=== PATIENT | female | born 1940 | race Caucasian/White ===

== ENCOUNTER 2018-03-31 17:04 | Observation (INO) ==
--- NOTE | 2018-03-31 17:25 | Emergency Department Note ---
Disposition Clinical Impression: Anemia Qualifiers: Anemia type: unspecified type Qualified Code(s): D64.9 - Anemia, unspecified Disposition: Admitted As Inpatient Condition: Fair General Adult HPI - General Chief complaint: ED Recheck/Abnormal Lab/Rx Stated complaint: abnormal labs Source: patient, EMS Mode of arrival: EMS Limitations: no limitations Nursing Notes Reviewed: Yes Vital Signs Reviewed: Yes - History of Present Illness HPI Narrative: Patient presents to the ED on referral by her dialysis center for further evaluation of a dropping hemoglobin. Per report and paperwork sent with the patient her hemoglobin was 9.7 on the , 7.8 on the and 6.9 2 days ago. Patient has a history of chronic anemia but has had a stable H&H in the past. Patient reports that she does feel short of breath that is worse with exertion over the past month and also has some fatigue. She reports a nosebleed 1 week ago but no other spontaneous bleeding or easy bruising. She is on Coumadin for her history of A. fib. She had a normal dialysis session today. She states she did have a blood transfusion 4-5 years ago after becoming anemic from rectal bleeding that was discovered to be from colon polyps. She has not had any bleeding problems since that time. She is on Coumadin and Plavix for her A. fib and cardiac history. Pain Scale: 0 - Related Data Home Medications Medication Instructions Recorded Confirmed Pentoxifylline [TRENtal] 400 mg PO BID 10/20/17 03/31/18 Midodrine HCl 10 mg PO MOWEFR 02/24/18 03/31/18 Simvastatin [Zocor] 10 mg PO HS 02/24/18 03/31/18 Warfarin [Coumadin] 4 mg PO MOWEFRSA 02/24/18 03/31/18 Calcium Acetate 667 mg PO TID 02/28/18 03/31/18 Umeclidinium [place] [Incruse 1 puff IH DAILY 02/28/18 03/31/18 Ellipta] Warfarin [Coumadin] 2 mg PO SUTUTH 02/28/18 03/31/18 Ibuprofen [Ibu] 600 mg PO BID 03/31/18 03/31/18 Previous Rx's Medication Instructions Recorded Albuterol Sulfate [Ventolin Hfa] 2 puff IH Q4H PRN #1 hfa.aer.ad 09/13/17 Budesonide/Formoterol 160/4.5 2 puff IH BIDR #1 inhaler 09/13/17 [Symbicort 160/4.5] Citalopram [CeleXA] 20 mg PO DAILY #30 tablet 09/13/17 Esomeprazole Magnesium [Nexium] 40 mg PO DAILY #30 capsule. 09/13/17 Folic Acid 1 mg PO DAILY #30 tablet 09/13/17 Nitroglycerin [Nitrostat] 0.4 mg SL Q5M PRN #1 bottle 09/13/17 Renal Vitamin [Renal Caps Softgel] 1 mg PO DAILY #30 capsule 09/13/17 Zolpidem [Ambien] 5 mg PO HS 30 Days #30 tablet 09/13/17 Clopidogrel Bisulfate [Plavix] 75 mg PO DAILY #30 tablet 10/20/17 Acetaminophen [Tylenol] 650 mg PO Q6HR PRN #60 tablet 03/02/18 Metoprolol [Lopressor] 12.5 mg PO BID #60 tablet 03/02/18 Allergies Allergy/AdvReac Type Severity Reaction Status Date / Time diltiazem [From Cardizem] Allergy Rash Verified 03/31/18 17:20 naproxen Allergy Hives Verified 03/31/18 17:20 codeine AdvReac Nausea Verified 03/31/18 17:20 Constitutional: Denies: fever, chills, weakness, weight change Eyes: Denies: eye pain, eye discharge, vision change ENT ED: Denies: ear pain, throat pain, dental pain, hearing loss, epistaxis, c ongestion, dysphagia Cardiovascular: Reports: dyspnea on exertion. Denies: chest pain, palpitations, edema, syncope Respiratory: Denies: cough, dyspnea, wheezes, hemoptysis, stridor Gastrointestinal: Denies: abdominal pain, nausea, vomiting, diarrhea, constipation, hematemesis, melena, hematochezia Genitourinary: Denies: dysuria, frequency, hematuria, discharge Musculoskeletal: Denies: back pain, neck pain, arthralgia, myalgia Integumentary: Denies: rash, abrasion, lesions Neurological: Denies: headache, weakness, numbness, paresthesias, confusion, abnormal gait, vertigo Psychiatric: Denies: anxiety, depression, suicidal thoughts, homicidal thoughts, auditory hallucinations, visual hallucinations Endocrine: Reports: fatigue Hematological/Lymphatic: Denies: easy bleeding, easy bruising Allergic/Immunologic: Denies: facial swelling, urticaria Past Medical History - Past Medical History Medical history: Reports: atrial fibrillation, CHF, COPD, CVA, dialysis, GERD, hyperlipidemia, hypertension, peripheral artery disease, renal disease Surgical history: Reports: cholecystectomy, thyroidectomy, vascular surgery, LE vascular intervention Psychiatric history: Reports: depression POWERTRAIN ENGINEER history: Reports: no POWERTRAIN ENGINEER history - Social History Smoking Status: Former smoker Smokeless Tobacco Status: No Alcohol use: Reports: none Drug use: Reports: none Physical Exam - General Limitations: no limitations General appearance: alert, in no apparent distress - Head Head exam: atraumatic, normocephalic, normal inspection - Eye Eye exam: Present: normal appearance, PERRL, EOMI - ENT ENT exam: normal exam, normal oropharynx, mucous membranes moist - Neck Neck exam: Present: normal inspection, full ROM, trachea midline - Chest Chest inspection: Present: normal inspection, symmetric chest wall rise - Respiratory Respiratory exam: Present: normal lung sounds bilaterally - Cardiovascular Cardiovascular exam: Present: regular rate, normal rhythm, normal heart sounds - Abdominal Exam Abdominal exam: Present: soft, Non-Tender. Absent: tenderness, distention, guarding, rebound, rigidity - Rectal Exam Link Trainer present during exam: Yes Rectal exam: Present: normal inspection, normal rectal tone, hemorrhoids - Extremities Exam Extremities exam: Present: normal inspection, full ROM, other (L BKA). Absent: tenderness, pedal edema - Neurological Exam Neurological exam: Present: alert, oriented X3 - Psychiatric Psychiatric exam: Present: normal affect, normal mood - Skin Skin exam: Present: warm, dry, intact, normal color Course Course Narrative: Patient presents to the ED on referral from her dialysis center for study dropping H&H. On arrival she is afebrile and nontoxic in appearance that is intermittently tachycardic with A. fib which is chronic for her. Will repeat lab work and obtain stool guaiac to confirm H&H before ordering blood products. - Reevaluation(s) Reevaluation #1: H&H are 6.6 and 21.8. Stool is guaiac positive. Patient will need a blood transfusion. Discussed with patient the need for blood transfusion and she is in agreement. Given the possible GI source and patient's requirement of dialysis, consideration was made for transfer to [facility] for transfusion and further workup but no beds were available. I spoke to Dr. Yusuf here who is comfortable accepting the patient. We will order anemia w orkup per his request and start transfusion of 2 units of blood. Vital Signs Temperature 98.2 F 03/31/18 17:11 Pulse Rate 105 03/31/18 17:11 Respiratory Rate 18 03/31/18 17:11 Blood Pressure 132/79 03/31/18 17:11 O2 Sat by Pulse Oximetry 98 03/31/18 17:11 Temperature 98.2 F 04/01/18 06:13 Pulse Rate 94 04/01/18 06:13 Respiratory Rate 16 04/01/18 06:13 Blood Pressure 121/76 04/01/18 06:13 O2 Sat by Pulse Oximetry 99 04/01/18 06:13 Oxygen Delivery Oxygen Delivery Nasal Cannula Medical Decision Making - Medical Records Medical records reviewed: Yes I reviewed the patient's medical records. - Lab Data Lab results reviewed: Yes I reviewed the patient's lab results. Result diagrams: 03/31/18 17:46 03/31/18 17:46 Lab Results 03/31/18 03/31/18 03/31/18 Range/Units 17:46 17:46 17:46 WBC 5.9 (4.3-11.1) K/mcL RBC 1.99 L (3.82-4.97) M/mcL Hgb 6.6 L (11.5-15.4) g/dL Hct 21.8 L (35.3-44.9) % MCV 109.5 H (83.0-100.0) fL MCH 33.2 (28.0-33.3) pg MCHC 30.3 L (31.6-35.5) g/dL RDW 14.3 (11.5-14.5) % Plt Count 250 (140-400) K/mcL MPV 9.3 L (9.4-12.4) fL Immature Gran % 0.5 (0-4) % Seg Neutrophils % 75.2 % Lymphocytes % 13.6 % Monocytes % 7.3 % Eosinophils % 3.1 % Basophils % 0.3 % Neutrophils # 4.4 (1.6-8.9) K/mcL Lymphocytes # 0.8 (0.6-4.6) K/mcL Monocytes # 0.4 (0.0-1.3) K/mcL Eosinophils # 0.2 (0.0-0.6) K/mcL Basophils # 0.0 (0.0-0.2) K/mcL PT (9.4-12.1) Seconds INR Sodium 137 (136-145) mEq/L Potassium 4.0 (3.5-5.1) mEq/L Chloride 98 (98-107) mEq/L Carbon Dioxide 27 (23-29) mEq/L BUN 19 (8-23) mg/dL Creatinine 2.69 H (0.60-1.20) mg/dL Est GFR ( Amer) 21 L (> 60) Est GFR (Non-Af Amer) 17 L (> 60) BUN/Creatinine Ratio 7 (6-26) Glucose 103 (70-105) mg/dL Calculated Osmolality 287 (280-300) Calcium 8.9 (8.6-10.3) mg/dL Stool Occult Blood (Negative) Blood Type A POSITIVE Antibody Screen NEGATIVE Crossmatch See Detail 03/31/18 03/31/18 Range/Units 17:46 19:13 WBC (4.3-11.1) K/mcL RBC (3.82-4.97) M/mcL Hgb (11.5-15.4) g/dL Hct (35.3-44.9) % MCV (83.0-100.0) fL MCH (28.0-33.3) pg MCHC (31.6-35.5) g/dL RDW (11.5-14.5) % Plt Count (140-400) K/mcL MPV (9.4-12.4) fL Immature Gran % (0-4) % Seg Neutrophils % % Lymphocytes % % Monocytes % % Eosinophils % % Basophils % % Neutrophils # (1.6-8.9) K/mcL Lymphocytes # (0.6-4.6) K/mcL Monocytes # (0.0-1.3) K/mcL Eosinophils # (0.0-0.6) K/mcL Basophils # (0.0-0.2) K/mcL PT 42.8 H (9.4-12.1) Seconds INR 3.8 Sodium (136-145) mEq/L Potassium (3.5-5.1) mEq/L Chloride (98-107) mEq/L Carbon Dioxide (23-29) mEq/L BUN (8-23) mg/dL Creatinine (0.60-1.20) mg/dL Est GFR ( Amer) (> 60) Est GFR (Non-Af Amer) (> 60) BUN/Creatinine Ratio (6-26) Glucose (70-105) mg/dL Calculated Osmolality (280-300) Calcium (8.6-10.3) mg/dL Stool Occult Blood Positive A (Negative) Blood Type Antibody Screen Crossmatch
[2018-03-31 17:57] LABS: Basophils % 0.3 %; Eosinophils # 0.2 K/mcL (0.0-0.6); Eosinophils % 3.1 %; Hematocrit 21.8 % (35.3-44.9); Hemoglobin 6.6 g/dL (11.5-15.4); Immature Granulocytes % 0.5 % (0-4); Lymphocytes # 0.8 K/mcL (0.6-4.6); Lymphocytes % 13.6 %; Mean Corpuscular HGB Conc 30.3 g/dL (31.6-35.5); Mean Corpuscular Hemoglobin 33.2 pg (28.0-33.3); Mean Corpuscular Volume 109.5 fL (83.0-100.0); Mean Platelet Volume 9.3 fL (9.4-12.4); Monocytes # 0.4 K/mcL (0.0-1.3); Monocytes % 7.3 %; Neutrophils # 4.4 K/mcL (1.6-8.9); Platelet Count 250 K/mcL (140-400); Red Blood Count 1.99 M/mcL (3.82-4.97); Red Cell Distribution Width 14.3 % (11.5-14.5); Segmented Neutrophils % 75.2 %
[2018-03-31 18:04] LABS: INR 3.8; Prothrombin Time 42.8 Seconds (9.4-12.1)
[2018-03-31 18:11] LABS: Calcium 8.9 mg/dL (8.6-10.3)
[2018-03-31] MEDS ORDERED: Ipratropium/Albuterol Neb 3 ML IH ONE (19:03)
[2018-03-31] MEDS ORDERED: Naloxone 0.4 MG/ML INJ IVP PRN ×2 (19:59→20:46)
[2018-03-31] MEDS ORDERED: Acetaminophen 325 MG TABLET PO PRN (20:46)
[2018-03-31] MEDS ORDERED: Nitroglycerin 0.4 MG TAB.SUBL SL PRN (20:46)
[2018-03-31] MEDS ORDERED: 0.9 % Sodium Chloride 250 ML ONE (21:15)
[2018-03-31] MEDS: Ibuprofen 600 MG TABLET PO SCH (21:51)
[2018-03-31] MEDS: Calcium Acetate 667 MG CAPSULE PO SCH (21:52)
[2018-03-31] MEDS: Budesonide/Formoterol 160/4.5 1 PUFF INH IH SCH (23:01)
[2018-04-01 07:44] LABS: Basophils % 0.7 %; Eosinophils # 0.3 K/mcL (0.0-0.6); Eosinophils % 4.2 %; Hematocrit 30.4 % (35.3-44.9); Hemoglobin 9.8 g/dL (11.5-15.4); Immature Granulocytes % 0.5 % (0-4); Lymphocytes # 0.9 K/mcL (0.6-4.6); Lymphocytes % 15.2 %; Mean Corpuscular HGB Conc 32.2 g/dL (31.6-35.5); Mean Corpuscular Hemoglobin 32.5 pg (28.0-33.3); Mean Corpuscular Volume 100.7 fL (83.0-100.0); Mean Platelet Volume 9.3 fL (9.4-12.4); Monocytes # 0.4 K/mcL (0.0-1.3); Monocytes % 7.1 %; Neutrophils # 4.3 K/mcL (1.6-8.9); Platelet Count 174 K/mcL (140-400); Red Blood Count 3.02 M/mcL (3.82-4.97); Red Cell Distribution Width 16.8 % (11.5-14.5); Segmented Neutrophils % 72.3 %
[2018-04-01] MEDS: Ibuprofen 600 MG TABLET PO SCH (08:50)
[2018-04-01] MEDS: Calcium Acetate 667 MG CAPSULE PO SCH ×2 (08:51→15:46)
[2018-04-01] MEDS ORDERED: (Umeclidinium Bromide [Incruse Ellipta] 1 PUFF) IH SCH (09:00)
[2018-04-01] MEDS ORDERED: Renal Vitamin 1 CAP CAPSULE PO SCH (09:00)
[2018-04-01] MEDS ORDERED: Folic Acid 1 MG TABLET PO SCH (09:00)
[2018-04-01 09:35] LABS: % Iron Saturation 16 % (15-50); Iron 36 mcg/dL (50-170); Transferrin 160 mg/dL (203-362)
[2018-04-01] MEDS: Budesonide/Formoterol 160/4.5 1 PUFF INH IH SCH (09:57)
[2018-04-01 10:01] LABS: Vitamin B12 913 pg/mL (250-1100)
[2018-04-01 10:20] LABS: Folate > 22.3 ng/mL (3.0-16.0)
[2018-04-01 10:32] VITALS: BP 110/68
--- NOTE | 2018-04-01 16:30 | Internal Med History&Physical ---
Date of Encounter: 04/01/18 Time of Encounter: 15:50 Assessment and Plan (1) Anemia Current visit: Yes Status: Acute Multifactorial etiology including chronic kidney disease, use of OAC, Plavix, and NSAID. Hemoglobin has risen to 9.8 posttransfusion. I told her to discontinue use of NSAIDs. Qualifiers: Anemia type: unspecified type Qualified Code(s): D64.9 - Anemia, unspecified (2) ESRD (end stage renal disease) on dialysis Current visit: No Status: Chronic Continue MWF hemodialysis (3) Atrial fibrillation Current visit: No Status: Chronic Continue Coumadin with dose adjustment to keep INR 2.0-3.0. Qualifiers: Atrial fibrillation type: chronic Qualified Code(s): I48.2 - Chronic atrial fibrillation Internal Medicine - H&P: HPI Chief complaint: Anemia Admitted From: Emergency Dept Plans for Post Hospital Care: Home History of present illness: Ms. Santiago is a 77 year old female who was directed to emergency room from dialysis after she was found to have anemia following dialysis treatment. Labs in emergency room confirmed anemia with hemoglobin 6.6. She was admitted to [facility] floor for blood transfusion and ongoing care needs. She states she feels significantly improved posttransfusion and wishes to be discharged home. She reports she felt weak and slightly dyspneic prior to transfusion. She denies visible melena or hematochezia but states her vision is significantly impaired from macular degeneration. She has had no abdominal pain or change in her bowel habits. She admits she has used OTC ibuprofen at doses up to 60 mg twice a day recently. She is on Coumadin for atrial fibrillation and Plavix for known vascular disease. Cardiovascular history is pertinent for hypertension and chronic atrial fibrillation. She denies DVT or pulmonary embolus. 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 The renal arteries had significant flow-limiting disease bilaterally. Distal right common femoral and right superficial femoral were occluded. The right posterior tibial and anterior tibial were occluded. Balloon angioplasty was performed successfully on the right common femoral, proximal aspect of femoral popliteal bypass graft, and distal aspect of the femoral popliteal bypass graft. Echocardiogram 03/01/2018 showed LVEF of 60%. The interventricular septum and posterior wall thickness measurements were 1.20 and 1.00 cm respectively. There was LAE at 4.50 cm. There was indeterminate diastolic function due to atrial fibrillation. There was mild tricuspid regurgitation. There was reported mild pulmonary hypertension although estimated RVSP was not documented. Past Med Surg Social Fam HX - Past Medical History Medical history: atrial fibrillation, CHF, COPD, CVA, dialysis, GERD, hyperlipidemia, hypertension, peripheral artery disease, renal disease Additional medical history: cva x2, Psychiatric history: depression - Past Surgical History Surgical History: cholecystectomy, thyroidectomy, vascular surgery, LE vascular intervention Additional surgical history: left below the knee amputation - Social History Smoking Status: Former smoker Smokeless Tobacco Status: No Alcohol use: none Drug use: none - Family History Father Adopted: Yes Mother Adopted: Yes Brother Family Member Ethnicity: Non- Living Status: Still Living Sister Family Member Ethnicity: Non- Living Status: Still Living Hx Family Neuromuscular Disorders: Yes (Parkinson's disease) Internal Medicine - H&P: Meds Albuterol Sulfate [Ventolin Hfa] 2 puff IH Q4H PRN #1 hfa.aer.ad 09/13/17 [Rx] Budesonide/Formoterol 160/4.5 [Symbicort 160/4.5] 2 puff IH BIDR #1 inhaler 09/13/17 [Rx] Citalopram [CeleXA] 20 mg PO DAILY #30 tablet 09/13/17 [Rx] Esomeprazole Magnesium [Nexium] 40 mg PO DAILY #30 capsule. 09/13/17 [Rx] Folic Acid 1 mg PO DAILY #30 tablet 09/13/17 [Rx] Nitroglycerin [Nitrostat] 0.4 mg SL Q5M PRN #1 bottle 09/13/17 [Rx] Renal Vitamin [Renal Caps Softgel] 1 mg PO DAILY #30 capsule 09/13/17 [Rx] Zolpidem [Ambien] 5 mg PO HS 30 Days #30 tablet 09/13/17 [Rx] Clopidogrel Bisulfate [Plavix] 75 mg PO DAILY #30 tablet 10/20/17 [Rx] Pentoxifylline [TRENtal] 400 mg PO BID 10/20/17 [History] Midodrine HCl 10 mg PO MOWEFR 02/24/18 [History] Simvastatin [Zocor] 10 mg PO HS 02/24/18 [History] Warfarin [Coumadin] 4 mg PO MOWEFRSA 02/24/18 [History] Calcium Acetate 667 mg PO TID 02/28/18 [History] Umeclidinium [place] [Incruse Ellipta] 1 puff IH DAILY 02/28/18 [History] Warfarin [Coumadin] 2 mg PO SUTUTH 02/28/18 [History] Acetaminophen [Tylenol] 650 mg PO Q6HR PRN #60 tablet 03/02/18 [Rx] Metoprolol [Lopressor] 12.5 mg PO BID #60 tablet 03/02/18 [Rx] Ibuprofen [Ibu] 600 mg PO BID 03/31/18 [History] Allergy/AdvReac Type Severity Reaction Status Date / Time diltiazem [From Cardizem] Allergy Rash Verified 03/31/18 17:20 naproxen Allergy Hives Verified 03/31/18 17:20 codeine AdvReac Nausea Verified 03/31/18 17:20 All Systems PM: A 10-system review of systems was performed and is negative for pertinent findings except as documented above in the HPI. Review of systems: Gen.: Her weight has decreased from 88.7 kg on 08/22/2016 to 73.255 kg now Cardiovascular: As per history of present illness Respiratory: She smoked from age [age] never exceeding 1 pack per day. She has a diagnosis of COPD with PFTs done approximately 2011. She wears oxygen 18/10. She has a diagnosis of ATUL and has CPAP at home but admits she does not use it consistently. Chest CT scan November 2017 showed a slowly enlarging right lower lobe solid nodule. GI: She has had cholecystectomy. She has GERD but denies disorders of liver or exocrine pancreas : She had kidney stones remotely. She has chronic kidney disease stage V and has been on hemodialysis since 2008. She has had left renal cyst with serial imaging. She denies other kidney or bladder disorders. Endocrine: She has hyperlipidemia but denies diabetes. She had partial thyroidectomy remotely for goiter. 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 She reports to mini strokes but denies large disposition strokes or seizures. Hematology/oncology: She has chronic anemia presumably primarily from chronic kidney disease. She denies internal malignancies. Psychiatric: She has depression but denies anxiety other mental health issues. Muscle skeletal: She has arthritis and osteoporosis but denies gout. 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 - Constitutional Vitals: Temp Pulse Resp BP Pulse Ox 98.2 F 70 18 110/68 98 04/01/18 10:32 04/01/18 10:32 04/01/18 10:32 04/01/18 10:32 04/01/18 10:32 Exam: Gen.: She is well-developed well-nourished female resting comfortably in bed who appears in no acute distress at present time HEENT: Head is atraumatic and normocephalic. Eyes: EOMI. There is no scleral icterus. Mouth: Mucosa is moist. Neck: Supple and nontender. There is no thyromegaly or adenopathy noted. Heart: Irregularly irregular without murmurs or gallops Lungs: No wheezes or crackles are heard. Abdomen: Soft and nontender. No masses or guarding are noted. Extremities: She has a well-healed left BKA. The right foot is warm to touch and shows chronic ischemic changes of her toes. Dorsalis pedis and posttibial p ulses are trace palpable bilaterally. She has minimal DJD changes of her hands. Neurologic: Mental status: She is talkative and a good historian. Cranial nerves: Smile is symmetric. Forehead wrinkles bilaterally. Tongue protrudes midline. EOMI. Motor: There is no pronator drift. Cerebellar: Finger to nose is intact bilaterally. Skin: Warm and dry. Internal Med - H&P Results - Labs CBC & Chem 7: 04/01/18 07:32 03/31/18 17:46 Labs: Short CBC 03/31/18 04/01/18 Range/Units 17:46 07:32 WBC 5.9 5.9 (4.3-11.1) K/mcL Hgb 6.6 L 9.8 L D (11.5-15.4) g/dL Hct 21.8 L 30.4 L (35.3-44.9) % Plt Count 250 174 (140-400) K/mcL Neutrophils # 4.4 4.3 (1.6-8.9) K/mcL BMP 03/31/18 17:46 Sodium 137 Potassium 4.0 Chloride 98 Carbon Dioxide 27 BUN 19 Creatinine 2.69 H Glucose 103 Calcium 8.9 - Impressions ITS Impressions Chest X-Ray 03/31/18 19:03 IMPRESSION: Asymmetric increased density of the right hemithorax when compared to the left may be secondary to rotation. Clinical correlation and follow-up study would be helpful. D/ / Radu Angulo MD / Radu Angulo MD Interpreting Provider: Radu Angulo MD - VTE Reasons for not Prescribing Prophylaxis: Not indicated-Anticoagulated or INR therapeutic
--- NOTE | 2018-04-01 16:48 | Discharge Summary ---
Date of Encounter: 04/01/18 Time of Encounter: 15:50 - Discharge Diagnosis (1) Anemia Priority: Primary Status: Acute Qualifiers: Anemia type: unspecified type Qualified Code(s): D64.9 - Anemia, uns pecified (2) ESRD (end stage renal disease) on dialysis Priority: Secondary Status: Chronic (3) Atrial fibrillation Priority: Secondary Status: Chronic Qualifiers: Atrial fibrillation type: chronic Qualified Code(s): I48.2 - Chronic atrial fibrillation Hospital course: Ms. Santiago is a 77 year old female who was directed to emergency room from dialysis after she was found to have anemia following dialysis treatment. Labs in emergency room confirmed anemia with hemoglobin 6.6. She was admitted to [facility] floor for blood transfusion and ongoing care needs. Initial orders were written by the emergency room physician. I saw her on April 01 and performed the history and physical. Hemoglobin emiliano to 9.8 posttransfusion. She felt back to baseline and wished to be discharged home. I told her to discontinue use of OTC ibuprofen. I felt it was likely her home dose of up to 600 mg twice a day contributed significantly to her anemia. She will continue Coumadin with monitoring/adjustment done at Coumadin clinic. She will also continue Plavix. Anemia testing showed iron 36, transferrin saturation 16, transferrin 160, ferritin > 1500, B12 913, and folate > 22.3. Supplemental folic acid will be discontinued. Her PCP can verify she is getting EPO at time of dialysis. She will follow with her PCP Dr. Ifeanyi Aviles within 1 week. - Time Spent with Patient Total time spent providing and/or coordinating discharge services: - Discharge Medications Home Medications: Albuterol Sulfate [Ventolin Hfa] 2 puff IH Q4H PRN #1 hfa.aer.ad 09/13/17 [Rx] Budesonide/Formoterol 160/4.5 [Symbicort 160/4.5] 2 puff IH BIDR #1 inhaler 09/13/17 [Rx] Citalopram [CeleXA] 20 mg PO DAILY #30 tablet 09/13/17 [Rx] Esomeprazole Magnesium [Nexium] 40 mg PO DAILY #30 capsule. 09/13/17 [Rx] Nitroglycerin [Nitrostat] 0.4 mg SL Q5M PRN #1 bottle 09/13/17 [Rx] Renal Vitamin [Renal Caps Softgel] 1 mg PO DAILY #30 capsule 09/13/17 [Rx] Zolpidem [Ambien] 5 mg PO HS 30 Days #30 tablet 09/13/17 [Rx] Clopidogrel Bisulfate [Plavix] 75 mg PO DAILY #30 tablet 10/20/17 [Rx] Pentoxifylline [TRENtal] 400 mg PO BID 10/20/17 [History] Midodrine HCl 10 mg PO MOWEFR 02/24/18 [History] Simvastatin [Zocor] 10 mg PO HS 02/24/18 [History] Warfarin [Coumadin] 4 mg PO MOWEFRSA 02/24/18 [History] Calcium Acetate 667 mg PO TID 02/28/18 [History] Umeclidinium [place] [Incruse Ellipta] 1 puff IH DAILY 02/28/18 [History] Warfarin [Coumadin] 2 mg PO SUTUTH 02/28/18 [History] Acetaminophen [Tylenol] 650 mg PO Q6HR PRN #60 tablet 03/02/18 [Rx] Metoprolol [Lopressor] 12.5 mg PO BID #60 tablet 03/02/18 [Rx] Allergies/Adverse Reactions: Allergy/AdvReac Type Severity Reaction Status Date / Time diltiazem [From Cardizem] Allergy Rash Verified 03/31/18 17:20 naproxen Allergy Hives Verified 03/31/18 17:20 codeine AdvReac Nausea Verified 03/31/18 17:20 Date of admission: 03/31/18 20:16 Primary care physician: Ifeanyi Aviles MD - Constitutional Vitals: Temp Pulse Resp BP Pulse Ox 98.2 F 70 18 110/68 98 04/01/18 10:32 04/01/18 10:32 04/01/18 10:32 04/01/18 10:32 04/01/18 10:32 - Patient Status Disposition: Home, Self-Care Condition: Fair - Discharge Instructions Follow Up With: Ifeanyi Aviles MD [Primary Care Provider] - 1 week - Diet and Activity Activity: resume usual activities as tolerated Diet: advance to your usual diet - VTE Reasons for not Prescribing Prophylaxis: Not indicated-Anticoagulated or INR therapeutic
== END 2018-04-01 17:40 | disposition home or self-care (01) ==
LOC: INPPIK 17:04 → EMEROOPIK 17:04 → INPPIK 20:32
PROVIDERS: ADMIT Internal Medicine; ATTEND Internal Medicine

== ENCOUNTER 2019-09-21 18:09 | Inpatient (IN) ==
[2019-09-21] MEDS ORDERED: Albuterol Neb 1.25 MG/3 ML VIAL IH PRN (20:37)
[2019-09-21] MEDS ORDERED: Levalbuterol 1 PUFF INHALER IH PRN (20:37)
[2019-09-21] MEDS ORDERED: Nitroglycerin 0.4 MG TAB.SUBL SL PRN (20:37)
[2019-09-21] MEDS ORDERED: Ondansetron ODT 4 MG TAB.RAPDIS SL PRN (20:49)
[2019-09-21] MEDS ORDERED: Melatonin 3 MG TABLET PO PRN (20:50)
[2019-09-21] MEDS: Apixaban 5 MG TABLET PO SCH (21:33)
[2019-09-21] MEDS: Budesonide/Formoterol 160/4.5 1 PUFF INH IH SCH (23:43)
[2019-09-22] MEDS: Levothyroxine 25 MCG TABLET PO SCH (05:34)
[2019-09-22 06:14] LABS: Basophils # 0.1 K/mcL (0.0-0.2); Basophils % 1.3 %; Eosinophils # 0.5 K/mcL (0.0-0.6); Eosinophils % 8.6 %; Hemoglobin 10.1 g/dL (11.5-15.4); Immature Granulocytes % 0.3 % (0-4); Lymphocytes # 1.4 K/mcL (0.6-4.6); Mean Corpuscular HGB Conc 28.9 g/dL (31.6-35.5); Mean Corpuscular Volume 110.8 fL (83.0-100.0); Mean Platelet Volume 9.9 fL (9.4-12.4); Monocytes # 0.4 K/mcL (0.0-1.3); Monocytes % 6.7 %; Neutrophils # 3.7 K/mcL (1.6-8.9); Platelet Count 132 K/mcL (140-400); Red Blood Count 3.16 M/mcL (3.82-4.97); Red Cell Distribution Width 14.9 % (11.5-14.5); Segmented Neutrophils % 60.1 %; White Blood Count 6.1 K/mcL (4.3-11.1)
[2019-09-22 07:20] LABS: Calcium 8.8 mg/dL (8.6-10.3); Potassium 3.5 mEq/L (3.5-5.1)
[2019-09-22] MEDS ORDERED: Tiotropium 18 MCG inhalation IH ONE (07:29)
[2019-09-22] MEDS: Budesonide/Formoterol 160/4.5 1 PUFF INH IH SCH ×2 (07:39→22:04)
[2019-09-22] MEDS: Tiotropium 18 MCG inhalation IH SCH (07:39)
[2019-09-22 07:59] LABS: Anisocytosis 1+ (Not Present); Hypochromasia Present (Not Present); Macrocytosis Present (Not Present)
[2019-09-22 08:00] LABS: Basophilic Stippling 1+ (Not Present); Platelet Estimate Normal (Normal); Polychromasia 1+ (Not Present)
[2019-09-22] MEDS ORDERED: Levalbuterol 1 PUFF INHALER IH PRN (08:47)
[2019-09-22] MEDS ORDERED: Albuterol 2.5 MG/3 ML NEBULIZER IH PRN (09:00)
[2019-09-22] MEDS ORDERED: Levalbuterol Neb 1.25 MG/3 ML IH PRN (09:21)
[2019-09-22] MEDS: Renal Vitamin 1 CAP CAPSULE PO SCH (09:56)
[2019-09-22] MEDS: Cholecalciferol (D-3) 1,000 UNIT (25MCG) TABLET PO SCH (09:58)
[2019-09-22] MEDS: Apixaban 5 MG TABLET PO SCH ×2 (09:58→21:35)
[2019-09-22] MEDS: Folic Acid 1 MG TABLET PO SCH (09:59)
[2019-09-22] MEDS: Gabapentin 100 MG CAPSULE PO SCH (10:00)
[2019-09-22] MEDS: QUEtiapine Fumarate 25 MG TABLET PO SCH (10:01)
[2019-09-22] MEDS: Sennosides/Docusate Sodium TABLET PO SCH (10:01)
[2019-09-22] MEDS: (Colestipol Hcl [Colestid] 1 GM) PO SCH (12:45)
[2019-09-23] MEDS: Levothyroxine 25 MCG TABLET PO SCH (05:05)
[2019-09-23] MEDS: Apixaban 5 MG TABLET PO SCH ×2 (08:21→19:55)
[2019-09-23] MEDS: Folic Acid 1 MG TABLET PO SCH (08:23)
[2019-09-23] MEDS: Gabapentin 100 MG CAPSULE PO SCH (08:24)
[2019-09-23] MEDS: Renal Vitamin 1 CAP CAPSULE PO SCH (08:25)
[2019-09-23] MEDS: QUEtiapine Fumarate 25 MG TABLET PO SCH (08:26)
[2019-09-23] MEDS: Sennosides/Docusate Sodium TABLET PO SCH (08:26)
[2019-09-23] MEDS: Cholecalciferol (D-3) 1,000 UNIT (25MCG) TABLET PO SCH (08:31)
[2019-09-23] MEDS: (Colestipol Hcl [Colestid] 1 GM) PO SCH (08:55)
[2019-09-23] MEDS: Budesonide/Formoterol 160/4.5 1 PUFF INH IH SCH ×2 (10:58→22:39)
[2019-09-23] MEDS: Tiotropium 18 MCG inhalation IH SCH (10:58)
[2019-09-23] MEDS: Acetaminophen 325 MG TABLET PO PRN (14:40)
[2019-09-24] MEDS: Levothyroxine 25 MCG TABLET PO SCH (05:43)
[2019-09-24] MEDS: QUEtiapine Fumarate 25 MG TABLET PO SCH (08:07)
[2019-09-24] MEDS: Renal Vitamin 1 CAP CAPSULE PO SCH (08:07)
[2019-09-24] MEDS: Sennosides/Docusate Sodium TABLET PO SCH (08:07)
[2019-09-24] MEDS: Cholecalciferol (D-3) 1,000 UNIT (25MCG) TABLET PO SCH (08:07)
[2019-09-24] MEDS: Folic Acid 1 MG TABLET PO SCH (08:07)
[2019-09-24] MEDS: Apixaban 5 MG TABLET PO SCH ×2 (08:07→20:26)
[2019-09-24] MEDS: Gabapentin 100 MG CAPSULE PO SCH (08:07)
[2019-09-24] MEDS: (Colestipol Hcl [Colestid] 1 GM) PO SCH (08:12)
[2019-09-24] MEDS: Budesonide/Formoterol 160/4.5 1 PUFF INH IH SCH ×2 (10:39→22:16)
[2019-09-24] MEDS: Tiotropium 18 MCG inhalation IH SCH (10:39)
[2019-09-25] MEDS: Levothyroxine 25 MCG TABLET PO SCH (05:54)
[2019-09-25] MEDS: Folic Acid 1 MG TABLET PO SCH (07:53)
[2019-09-25] MEDS: Cholecalciferol (D-3) 1,000 UNIT (25MCG) TABLET PO SCH (07:53)
[2019-09-25] MEDS: Gabapentin 100 MG CAPSULE PO SCH (07:53)
[2019-09-25] MEDS: Apixaban 5 MG TABLET PO SCH ×2 (07:53→20:18)
[2019-09-25] MEDS: Renal Vitamin 1 CAP CAPSULE PO SCH (07:53)
[2019-09-25] MEDS: QUEtiapine Fumarate 25 MG TABLET PO SCH (07:53)
[2019-09-25] MEDS: Sennosides/Docusate Sodium TABLET PO SCH (07:54)
[2019-09-25] MEDS: (Colestipol Hcl [Colestid] 1 GM) PO SCH (07:54)
[2019-09-25] MEDS: Budesonide/Formoterol 160/4.5 1 PUFF INH IH SCH ×2 (09:06→22:33)
[2019-09-25] MEDS: Tiotropium 18 MCG inhalation IH SCH (09:07)
[2019-09-26] MEDS: Levothyroxine 25 MCG TABLET PO SCH (06:04)
[2019-09-26] MEDS: Budesonide/Formoterol 160/4.5 1 PUFF INH IH SCH ×2 (09:11→21:23)
[2019-09-26] MEDS: Tiotropium 18 MCG inhalation IH SCH (09:11)
[2019-09-26] MEDS: (Colestipol Hcl [Colestid] 1 GM) PO SCH (09:36)
[2019-09-26] MEDS: Apixaban 5 MG TABLET PO SCH ×2 (14:24→20:55)
[2019-09-26] MEDS: Renal Vitamin 1 CAP CAPSULE PO SCH (14:24)
[2019-09-26] MEDS: Gabapentin 100 MG CAPSULE PO SCH (14:25)
[2019-09-26] MEDS: Cholecalciferol (D-3) 1,000 UNIT (25MCG) TABLET PO SCH (14:25)
[2019-09-26] MEDS: Sennosides/Docusate Sodium TABLET PO SCH (14:25)
[2019-09-26] MEDS: Folic Acid 1 MG TABLET PO SCH (14:25)
[2019-09-26] MEDS: QUEtiapine Fumarate 25 MG TABLET PO SCH (14:26)
[2019-09-26 14:39] LABS: Basophils % 0.7 %; Eosinophils # 0.5 K/mcL (0.0-0.6); Eosinophils % 9.7 %; Hematocrit 39.4 % (35.3-44.9); Hemoglobin 11.7 g/dL (11.5-15.4); Immature Granulocytes % 0.4 % (0-4); Lymphocytes # 0.9 K/mcL (0.6-4.6); Lymphocytes % 15.8 %; Mean Corpuscular HGB Conc 29.7 g/dL (31.6-35.5); Mean Corpuscular Hemoglobin 31.9 pg (28.0-33.3); Mean Corpuscular Volume 107.4 fL (83.0-100.0); Mean Platelet Volume 10.5 fL (9.4-12.4); Monocytes # 0.3 K/mcL (0.0-1.3); Monocytes % 6.2 %; Neutrophils # 3.7 K/mcL (1.6-8.9); Platelet Count 113 K/mcL (140-400); Red Blood Count 3.67 M/mcL (3.82-4.97); Red Cell Distribution Width 15.5 % (11.5-14.5); Segmented Neutrophils % 67.2 %; White Blood Count 5.5 K/mcL (4.3-11.1)
[2019-09-26 14:53] LABS: Calcium 8.7 mg/dL (8.6-10.3); Potassium 3.2 mEq/L (3.5-5.1)
[2019-09-27] MEDS: Levothyroxine 25 MCG TABLET PO SCH (05:58)
[2019-09-27] MEDS: Renal Vitamin 1 CAP CAPSULE PO SCH (08:57)
[2019-09-27] MEDS: Sennosides/Docusate Sodium TABLET PO SCH (08:57)
[2019-09-27] MEDS: Gabapentin 100 MG CAPSULE PO SCH (08:57)
[2019-09-27] MEDS: Cholecalciferol (D-3) 1,000 UNIT (25MCG) TABLET PO SCH (08:57)
[2019-09-27] MEDS: QUEtiapine Fumarate 25 MG TABLET PO SCH (08:58)
[2019-09-27] MEDS: Folic Acid 1 MG TABLET PO SCH (08:58)
[2019-09-27] MEDS: (Colestipol Hcl [Colestid] 1 GM) PO SCH (08:59)
[2019-09-27] MEDS: Apixaban 5 MG TABLET PO SCH ×2 (08:59→20:51)
[2019-09-27] MEDS: Tiotropium 18 MCG inhalation IH SCH (10:59)
[2019-09-27] MEDS: Budesonide/Formoterol 160/4.5 1 PUFF INH IH SCH ×2 (10:59→20:43)
[2019-09-27] MEDS: Acetaminophen 325 MG TABLET PO PRN (20:51)
[2019-09-28] MEDS: Levothyroxine 25 MCG TABLET PO SCH (05:19)
[2019-09-28] MEDS: Renal Vitamin 1 CAP CAPSULE PO SCH (07:49)
[2019-09-28] MEDS: Sennosides/Docusate Sodium TABLET PO SCH (07:49)
[2019-09-28] MEDS: Folic Acid 1 MG TABLET PO SCH (07:49)
[2019-09-28] MEDS: Cholecalciferol (D-3) 1,000 UNIT (25MCG) TABLET PO SCH (07:50)
[2019-09-28] MEDS: QUEtiapine Fumarate 25 MG TABLET PO SCH (07:52)
[2019-09-28] MEDS: Apixaban 5 MG TABLET PO SCH ×2 (07:52→20:22)
[2019-09-28] MEDS: Gabapentin 100 MG CAPSULE PO SCH (07:52)
[2019-09-28] MEDS: (Colestipol Hcl [Colestid] 1 GM) PO SCH (07:53)
[2019-09-28] MEDS: Budesonide/Formoterol 160/4.5 1 PUFF INH IH SCH ×2 (10:38→21:03)
[2019-09-28] MEDS: Tiotropium 18 MCG inhalation IH SCH (10:38)
[2019-09-29] MEDS: Levothyroxine 25 MCG TABLET PO SCH (06:01)
[2019-09-29 06:38] LABS: Hematocrit 37.4 % (35.3-44.9); Hemoglobin 11.2 g/dL (11.5-15.4); Mean Corpuscular HGB Conc 29.9 g/dL (31.6-35.5); Mean Corpuscular Hemoglobin 32.4 pg (28.0-33.3); Mean Corpuscular Volume 108.1 fL (83.0-100.0); Mean Platelet Volume 10.6 fL (9.4-12.4); Platelet Count 121 K/mcL (140-400); Red Blood Count 3.46 M/mcL (3.82-4.97); Red Cell Distribution Width 15.1 % (11.5-14.5)
[2019-09-29 07:03] LABS: Calcium 8.5 mg/dL (8.6-10.3); Potassium 4.5 mEq/L (3.5-5.1)
[2019-09-29] MEDS: Tiotropium 18 MCG inhalation IH SCH (09:07)
[2019-09-29] MEDS: Budesonide/Formoterol 160/4.5 1 PUFF INH IH SCH ×2 (09:07→22:13)
[2019-09-29] MEDS: QUEtiapine Fumarate 25 MG TABLET PO SCH (10:12)
[2019-09-29] MEDS: Apixaban 5 MG TABLET PO SCH ×2 (10:12→20:15)
[2019-09-29] MEDS: (Colestipol Hcl [Colestid] 1 GM) PO SCH (10:13)
[2019-09-29] MEDS: Cholecalciferol (D-3) 1,000 UNIT (25MCG) TABLET PO SCH (10:13)
[2019-09-29] MEDS: Renal Vitamin 1 CAP CAPSULE PO SCH (10:13)
[2019-09-29] MEDS: Sennosides/Docusate Sodium TABLET PO SCH (10:13)
[2019-09-29] MEDS: Gabapentin 100 MG CAPSULE PO SCH (10:13)
[2019-09-29] MEDS: Folic Acid 1 MG TABLET PO SCH (10:13)
[2019-09-30] MEDS: Levothyroxine 25 MCG TABLET PO SCH (06:28)
[2019-09-30] MEDS: Tiotropium 18 MCG inhalation IH SCH (08:08)
[2019-09-30] MEDS: Budesonide/Formoterol 160/4.5 1 PUFF INH IH SCH ×2 (08:09→22:03)
[2019-09-30] MEDS: Apixaban 5 MG TABLET PO SCH ×2 (08:42→20:47)
[2019-09-30] MEDS: Gabapentin 100 MG CAPSULE PO SCH (08:43)
[2019-09-30] MEDS: Renal Vitamin 1 CAP CAPSULE PO SCH (08:43)
[2019-09-30] MEDS: QUEtiapine Fumarate 25 MG TABLET PO SCH (08:43)
[2019-09-30] MEDS: Folic Acid 1 MG TABLET PO SCH (08:43)
[2019-09-30] MEDS: Sennosides/Docusate Sodium TABLET PO SCH (08:44)
[2019-09-30] MEDS: Cholecalciferol (D-3) 1,000 UNIT (25MCG) TABLET PO SCH (08:45)
[2019-09-30] MEDS: (Colestipol Hcl [Colestid] 1 GM) PO SCH (08:53)
[2019-10-01] MEDS: Levothyroxine 25 MCG TABLET PO SCH (06:23)
[2019-10-01] MEDS: Budesonide/Formoterol 160/4.5 1 PUFF INH IH SCH ×2 (08:20→20:56)
[2019-10-01] MEDS: Tiotropium 18 MCG inhalation IH SCH (08:20)
[2019-10-01] MEDS: QUEtiapine Fumarate 25 MG TABLET PO SCH (14:40)
[2019-10-01] MEDS: Cholecalciferol (D-3) 1,000 UNIT (25MCG) TABLET PO SCH (14:41)
[2019-10-01] MEDS: Renal Vitamin 1 CAP CAPSULE PO SCH (14:41)
[2019-10-01] MEDS: Folic Acid 1 MG TABLET PO SCH (14:41)
[2019-10-01] MEDS: Gabapentin 100 MG CAPSULE PO SCH (14:42)
[2019-10-01] MEDS: Sennosides/Docusate Sodium TABLET PO SCH (14:42)
[2019-10-01] MEDS: (Colestipol Hcl [Colestid] 1 GM) PO SCH (14:43)
[2019-10-01] MEDS: Apixaban 5 MG TABLET PO SCH ×2 (14:47→19:33)
[2019-10-02] MEDS: Levothyroxine 25 MCG TABLET PO SCH (06:28)
[2019-10-02] MEDS: (Colestipol Hcl [Colestid] 1 GM) PO SCH (07:52)
[2019-10-02] MEDS: Folic Acid 1 MG TABLET PO SCH (07:57)
[2019-10-02] MEDS: Sennosides/Docusate Sodium TABLET PO SCH (07:58)
[2019-10-02] MEDS: Renal Vitamin 1 CAP CAPSULE PO SCH (07:58)
[2019-10-02] MEDS: QUEtiapine Fumarate 25 MG TABLET PO SCH (07:59)
[2019-10-02] MEDS: Apixaban 5 MG TABLET PO SCH ×2 (07:59→19:45)
[2019-10-02] MEDS: Gabapentin 100 MG CAPSULE PO SCH (08:00)
[2019-10-02] MEDS: Cholecalciferol (D-3) 1,000 UNIT (25MCG) TABLET PO SCH (08:00)
[2019-10-02] MEDS: Nystatin POWDER 30 GM BOTTLE TP SCH ×3 (09:28→19:46)
[2019-10-02] MEDS: Tiotropium 18 MCG inhalation IH SCH (10:29)
[2019-10-02] MEDS: Budesonide/Formoterol 160/4.5 1 PUFF INH IH SCH ×2 (10:30→20:34)
[2019-10-02] MEDS ORDERED: Nystatin POWDER 30 GM BOTTLE TP SCH (15:00)
[2019-10-03] MEDS: Levothyroxine 25 MCG TABLET PO SCH (06:25)
[2019-10-03] MEDS: Gabapentin 100 MG CAPSULE PO SCH (08:45)
[2019-10-03] MEDS: Sennosides/Docusate Sodium TABLET PO SCH (08:45)
[2019-10-03] MEDS: Apixaban 5 MG TABLET PO SCH ×2 (08:45→19:41)
[2019-10-03] MEDS: Folic Acid 1 MG TABLET PO SCH (08:45)
[2019-10-03] MEDS: Renal Vitamin 1 CAP CAPSULE PO SCH (08:46)
[2019-10-03] MEDS: QUEtiapine Fumarate 25 MG TABLET PO SCH (08:46)
[2019-10-03] MEDS: Cholecalciferol (D-3) 1,000 UNIT (25MCG) TABLET PO SCH (08:46)
[2019-10-03] MEDS: (Colestipol Hcl [Colestid] 1 GM) PO SCH (08:47)
[2019-10-03] MEDS: Nystatin POWDER 30 GM BOTTLE TP SCH ×3 (11:00→21:13)
[2019-10-03] MEDS: Tiotropium 18 MCG inhalation IH SCH (11:39)
[2019-10-03] MEDS: Budesonide/Formoterol 160/4.5 1 PUFF INH IH SCH ×2 (11:39→20:51)
[2019-10-04] MEDS: Levothyroxine 25 MCG TABLET PO SCH (06:38)
[2019-10-04] MEDS: Budesonide/Formoterol 160/4.5 1 PUFF INH IH SCH ×2 (08:20→22:59)
[2019-10-04] MEDS: Tiotropium 18 MCG inhalation IH SCH (08:20)
[2019-10-04] MEDS: Renal Vitamin 1 CAP CAPSULE PO SCH (09:35)
[2019-10-04] MEDS: Folic Acid 1 MG TABLET PO SCH (09:35)
[2019-10-04] MEDS: Apixaban 5 MG TABLET PO SCH ×2 (09:35→20:43)
[2019-10-04] MEDS: Cholecalciferol (D-3) 1,000 UNIT (25MCG) TABLET PO SCH (09:35)
[2019-10-04] MEDS: Sennosides/Docusate Sodium TABLET PO SCH (09:36)
[2019-10-04] MEDS: Gabapentin 100 MG CAPSULE PO SCH (09:36)
[2019-10-04] MEDS: QUEtiapine Fumarate 25 MG TABLET PO SCH (09:36)
[2019-10-04] MEDS: (Colestipol Hcl [Colestid] 1 GM) PO SCH (09:37)
[2019-10-04] MEDS: Nystatin POWDER 30 GM BOTTLE TP SCH ×3 (09:37→20:43)
[2019-10-04] MEDS: Acetaminophen 325 MG TABLET PO PRN (21:40)
[2019-10-05] MEDS: Levothyroxine 25 MCG TABLET PO SCH (06:50)
[2019-10-05] MEDS: Renal Vitamin 1 CAP CAPSULE PO SCH (08:53)
[2019-10-05] MEDS: Folic Acid 1 MG TABLET PO SCH (08:53)
[2019-10-05] MEDS: Gabapentin 100 MG CAPSULE PO SCH (08:54)
[2019-10-05] MEDS: QUEtiapine Fumarate 25 MG TABLET PO SCH (08:54)
[2019-10-05] MEDS: Cholecalciferol (D-3) 1,000 UNIT (25MCG) TABLET PO SCH (08:54)
[2019-10-05] MEDS: Apixaban 5 MG TABLET PO SCH ×2 (08:54→20:03)
[2019-10-05] MEDS: (Colestipol Hcl [Colestid] 1 GM) PO SCH (08:55)
[2019-10-05] MEDS: Nystatin POWDER 30 GM BOTTLE TP SCH ×4 (08:55→20:09)
[2019-10-05] MEDS: Sennosides/Docusate Sodium TABLET PO SCH (08:55)
[2019-10-05] MEDS: Budesonide/Formoterol 160/4.5 1 PUFF INH IH SCH ×2 (08:57→22:00)
[2019-10-05] MEDS: Tiotropium 18 MCG inhalation IH SCH (08:57)
[2019-10-06] MEDS: Levothyroxine 25 MCG TABLET PO SCH (05:44)
[2019-10-06] MEDS: Renal Vitamin 1 CAP CAPSULE PO SCH (08:44)
[2019-10-06] MEDS: Sennosides/Docusate Sodium TABLET PO SCH (08:44)
[2019-10-06] MEDS: Gabapentin 100 MG CAPSULE PO SCH (08:44)
[2019-10-06] MEDS: Folic Acid 1 MG TABLET PO SCH (08:45)
[2019-10-06] MEDS: Cholecalciferol (D-3) 1,000 UNIT (25MCG) TABLET PO SCH (08:45)
[2019-10-06] MEDS: Apixaban 5 MG TABLET PO SCH ×2 (08:45→19:36)
[2019-10-06] MEDS: QUEtiapine Fumarate 25 MG TABLET PO SCH (08:45)
[2019-10-06] MEDS: Nystatin POWDER 30 GM BOTTLE TP SCH ×3 (08:46→19:37)
[2019-10-06] MEDS: (Colestipol Hcl [Colestid] 1 GM) PO SCH (08:53)
[2019-10-06] MEDS: Tiotropium 18 MCG inhalation IH SCH (11:11)
[2019-10-06] MEDS: Budesonide/Formoterol 160/4.5 1 PUFF INH IH SCH ×2 (11:11→21:07)
[2019-10-07] MEDS: Levothyroxine 25 MCG TABLET PO SCH (05:28)
[2019-10-07] MEDS: Renal Vitamin 1 CAP CAPSULE PO SCH (08:27)
[2019-10-07] MEDS: Sennosides/Docusate Sodium TABLET PO SCH (08:27)
[2019-10-07] MEDS: QUEtiapine Fumarate 25 MG TABLET PO SCH (08:27)
[2019-10-07] MEDS: Apixaban 5 MG TABLET PO SCH ×2 (08:27→22:03)
[2019-10-07] MEDS: Gabapentin 100 MG CAPSULE PO SCH (08:28)
[2019-10-07] MEDS: Cholecalciferol (D-3) 1,000 UNIT (25MCG) TABLET PO SCH (08:28)
[2019-10-07] MEDS: Folic Acid 1 MG TABLET PO SCH (08:28)
[2019-10-07] MEDS: Nystatin POWDER 30 GM BOTTLE TP SCH ×3 (08:29→22:07)
[2019-10-07] MEDS: (Colestipol Hcl [Colestid] 1 GM) PO SCH (10:01)
[2019-10-07] MEDS: Tiotropium 18 MCG inhalation IH SCH (10:20)
[2019-10-07] MEDS: Budesonide/Formoterol 160/4.5 1 PUFF INH IH SCH ×2 (10:20→20:56)
[2019-10-08] MEDS: Levothyroxine 25 MCG TABLET PO SCH (04:34)
[2019-10-08 07:33] VITALS: BP 106/69
[2019-10-08] MEDS: QUEtiapine Fumarate 25 MG TABLET PO SCH (08:07)
[2019-10-08] MEDS: Renal Vitamin 1 CAP CAPSULE PO SCH (08:07)
[2019-10-08] MEDS: Sennosides/Docusate Sodium TABLET PO SCH (08:07)
[2019-10-08] MEDS: Gabapentin 100 MG CAPSULE PO SCH (08:07)
[2019-10-08] MEDS: Folic Acid 1 MG TABLET PO SCH (08:07)
[2019-10-08] MEDS: Apixaban 5 MG TABLET PO SCH (08:07)
[2019-10-08] MEDS: Nystatin POWDER 30 GM BOTTLE TP SCH (08:08)
[2019-10-08] MEDS: (Colestipol Hcl [Colestid] 1 GM) PO SCH (08:08)
[2019-10-08] MEDS: Cholecalciferol (D-3) 1,000 UNIT (25MCG) TABLET PO SCH (08:08)
[2019-10-08] MEDS: Budesonide/Formoterol 160/4.5 1 PUFF INH IH SCH (08:36)
[2019-10-08] MEDS: Tiotropium 18 MCG inhalation IH SCH (08:36)
== END 2019-10-08 16:59 | disposition home health service (06) | DRG 945 ==
LOC: INPPIK 18:25
PROVIDERS: ADMIT Family Medicine; ATTEND Family Medicine